=== PATIENT | female | born 1990 | race Hispanic/Latino ===

== ENCOUNTER 2017-09-16 09:56 | Inpatient (IN) | payer OTHER ==
[~2017-09-16 09:56] MED LIST: ACETAMINOPHEN 500 MG TAB PO PRN; BUTORPHANOL 1 MG/ML INJ IV PRN; DIPHENHYDRAMINE 50 MG/ML VIAL IV PRN; METOCLOPRAMIDE 10 MG/2mL INJ IV PRN; ONDANSETRON 4 MG/2 ML VIAL IV PRN; Ringers Lactate 1,000 ML IV PRN; Ringers Lactate 1,000 ML IV SCH; miSOPROStol 100 MCG TAB PO ONE
--- OUTSIDE RECORDS SUMMARY | 2017-09-16 09:57 | XMS REPORT ---
:1990 Author Organization [employer]Works Care Team Providers Name Role Phone Flori Bender Provider Role Unavailable Allergies No Known Allergies Problems Problem Type Condition Code Onset Dates Condition Status Problem Multigravida in second trimester Z34.82 Active Assessment Multigravida in second trimester Z34.82 Active Problem Anemia affecting in third O99.013 Active trimester Assessment Anemia affecting in third O99.013 Active trimester Medications Medication Code System Code Instructions Start End Date Status Dosage Date Ferralet 90 NDC 66862850042 90-1 MG Orally June 17, Active 1 tablet Twice a day 2018 Results No Known Results Summary Purpose [employer]ClinicalWorks Submission
--- OUTSIDE RECORDS SUMMARY | 2017-09-16 09:57 | XMS REPORT ---
:1990 Author Organization [employer] Care Team Providers Name Role Phone Flori Bender Provider Role Unavailable Allergies No Known Allergies Problems Problem Type Condition Code Onset Dates Condition Status Problem Anemia affecting in third O99.013 Active trimester Assessment Multigravida in third trimester Z34.83 Active Problem Multigravida in third trimester Z34.83 Active Medications Medication Code System Code Instructions Start End Date Status Dosage Date Ferralet 90 [facility] [id number] 90-1 MG Orally June 17, Active 1 tablet Twice a day 2017 Results No Known Results Summary Purpose eClinicalWorks Submission
--- OUTSIDE RECORDS SUMMARY | 2017-09-16 09:57 | XMS REPORT ---
[...] End Date Status Dosage Date Ferralet 90 [facility] [id number] 90-1 MG Orally June 17, Active 1 tablet Twice a day 2017 Results No Known Results Summary Purpose eClinicalWorks Submission
--- OUTSIDE RECORDS SUMMARY | 2017-09-16 09:57 | XMS REPORT ---
:1990 Author Organization [employer] Care Team Providers Name Role Phone Flori Bender Provider Role Unavailable Allergies No Known Allergies Problems Problem Type Condition Code Onset Dates Condition Status Problem Anemia affecting in third O99.013 Active trimester Assessment Anemia affecting in third O99.013 Active trimester Problem Multigravida in third trimester Z34.83 Active Assessment Multigravida in third trimester Z34.83 Active Medications Medication Code System Code Instructions Start End Date Status Dosage Date Ferralet 90 NDC 98677510255 90-1 MG Orally June 17, Active 1 tablet Twice a day 2018 Results No Known Results Summary Purpose eClinicalWorks Submission
--- OUTSIDE RECORDS SUMMARY | 2017-09-16 09:58 | XMS REPORT ---
:1990 Author Organization [employer] Care Team Providers Name Role Phone Flori Bender Provider Role Unavailable Allergies No Known Allergies Problems Problem Type Condition Code Onset Dates Condition Status Problem Anemia affecting in third O99.013 Active trimester Problem Multigravida in third trimester Z34.83 Active Medications No Known Medications Results No Known Results Summary Purpose [employer] Submission
--- OUTSIDE RECORDS SUMMARY | 2017-09-16 09:58 | XMS REPORT ---
[...] End Date Status Dosage Date Ferralet 90 [facility] [id number] 90-1 MG Orally June 17, Active 1 tablet Twice a day 2017 Results No Known Results Summary Purpose eClinicalWorks Submission
--- OUTSIDE RECORDS SUMMARY | 2017-09-16 09:58 | XMS REPORT ---
[...] End Date Status Dosage Date Ferralet 90 [facility] [id number] 90-1 MG Orally June 17, Active 1 tablet Twice a day 2017 Results No Known Results Summary Purpose eClinicalWorks Submission
--- OUTSIDE RECORDS SUMMARY | 2017-09-16 09:58 | XMS REPORT ---
:1990 Author Organization eClinicalWorks Care Team Providers Name Role Phone Flori Bender Provider Role Unavailable Allergies No Known Allergies Problems Problem Type Condition Code Onset Dates Condition Status Problem Anemia affecting in third O99.013 Active trimester Assessment Multigravida in third trimester Z34.83 Active Problem Multigravida in third trimester Z34.83 Active Assessment Anemia affecting in third O99.013 Active trimester Medications Medication Code System Code Instructions Start End Date Status Dosage Date Ferralet 90 NDC [id number] 90-1 MG Orally June 17, Active 1 tablet Twice a day 2018 Results No Known Results Summary Purpose eClinicalWorks Submission
--- OUTSIDE RECORDS SUMMARY | 2017-09-16 09:58 | XMS REPORT ---
[...] Date Status Dosage Date Ferralet 90 NDC [id number] 90-1 MG Orally June 17, Active 1 tablet Twice a day 2018 Results No Known Results Summary Purpose eClinicalWorks Submission
[2017-09-16 10:28] VITALS: BMI 30.1
[2017-09-16 10:59] LABS: RPR Titer ND
[2017-09-16 11:02] LABS: Absolute Lymphocytes (CBC) 1.6 K/uL (0.7-4.9); Absolute Monocytes 0.4 K/uL (0.1-1.3); Absolute Neutrophil 4.1 K/uL (1.8-8.0); Basophils % 0.4 % (0-1.3); Eosinophils % 0.7 % (0-4.4); Hematocrit 35.3 % (36.0-45.0); Lymphocytes % 25.1 % (15.3-44.8); MCH 33.6 pg (27.0-35.0); MCV 94.3 fL (80-100); MPV 9.6 fL (7.6-11.3); Monocytes % 6.8 % (3.3-12.3); RBC Red Blood Cell Count 3.74 M/uL (3.86-4.86)
[2017-09-16 11:11] LABS: Urine Appearance CLOUDY; Urine Bilirubin NEGATIVE (NEG); Urine Blood NEGATIVE (NEG); Urine Color YELLOW; Urine Glucose NEGATIVE (NEG); Urine Protein NEGATIVE (NEG); Urine pH 6.5 (5.0-7.0)
[2017-09-16 11:12] LABS: Urine Microscopic Reflex ORDER UMIC
[2017-09-16 11:17] LABS: Urine Bacteria 20-50 /HPF (<20); Urine Culture Reflex Order REFLEXED; Urine RBC <5 /HPF (NONE SEEN)
--- NOTE | 2017-09-16 12:09 | P.HP ---
Certification for Inpatient Patient admitted to: Inpatient With expected LOS: >2 Midnights Patient will require the following post-hospital care: None Practitioner: I am a practitioner with admitting privileges, knowledge of patient current condition, hospital course, and medical plan of care. Services: Services provided to patient in accordance with Admission requirements found in Title 42 Section 412.3 of the Code of Federal Regulations Patient History Date of Service: 09/16/17 Reason for admission: Elective induction of labor History of Present Illness: 27-year-old at 39 weeks and 1 day today being admitted for an elective induction of labor. She is had adequate care which was complicated by anemia - on iron supplementation. Anemia has resolved. She had a negative quad screen and normal anatomic survey. There were no other complications during . ARMINDA: . GBS negative status Allergies No Known Allergies Allergy (Unverified 07/21/16 23:52) Home medications list reviewed: Yes Home Medications: Ferrous Sulfate 1 tab PO DAILY 09/16/17 Vitamin [ VITAMIN*] 1 tab PO DAILY 09/16/17 - Past Medical/Surgical History Has patient received pneumonia vaccine in the past: No Past Medical History: Patient denies medical history -: Normal vaginal delivery - 11/2012 -: Miscarriage - 2017 (1st trimester loss) - Social History Smoking Status: Former smoker Alcohol use: No CD- Drugs: No Caffeine use: No Place of Residence: Home Review of Systems 10-point ROS is otherwise unremarkable Physical Examination - Vital Signs Temperature: 97.7 F Blood Pressure: 120/74 Pulse: 68 Respirations: 18 - Physical Exam General: Alert, In no apparent distress, Oriented x3 HEENT: Atraumatic, Normocephalic Respiratory: Other (Normal effort) Cardiovascular: No edema, Normal pulses Gastrointestinal: Soft and benign (Gravid) Musculoskeletal: No swelling, No tenderness Integumentary: No rashes, No breakdown Neurological: Normal speech, Normal strength at 5/5 x4 extr - Studies Laboratory Data (last 24 hrs) 09/16/17 10:35: WBC 6.2, Hgb 12.6, Hct 35.3 L, Plt Count 202 Female Exam - Female Pelvic Cervix: Dilation (1-2), Effacement (Thick), station (High), Other (Mid, firm) Uterus: Non-tender, Soft, Gravid - Obstetrics heart rate tracing: Category 1 Contractions: Frequency (Irregular) Amniotic membrane: Intact Assessment and Plan - Problems (Diagnosis) (1) Encounter for induction of labor Current Visit: Yes Status: Acute Plan: Admit to L&D for cervical ripening. IOL with cytotec PV started. Next dose is due in 6 hours. Keep on continuous monitoring x1 hour following dose, then patient may be up to ambulate. Pitocin when favorable vs AROM when well applied. GBS negative. MF status is overall reassuring. - Advance Directives Does patient have a Living Will: No Does patient have a Durable POA for Healthcare: No
[2017-09-16] MEDS ORDERED: miSOPROStol 100 MCG TAB VAG SCH (18:30)
--- NOTE | 2017-09-16 18:50 | P.PN ---
Date of Service: 09/16/17 Pt seen and examined. She reports increased pain. Discussed AROM and she agreed. She's considering and epidural for pain control. VSS FHR: cat I. [employer]: q 2 min SVE: 240/-2. AROM done: clear fluid noted A/p: 27 y.o. at 39w1d undergoing IOL - S/p AROM. Pitocin if labor stalls - Continuous monitoring - Epidural per patient request. Anesthesia notified
[2017-09-16] MEDS ORDERED: ROPIVACAINE HCL 0.2% 20ML AMP IV ONE (19:09)
[2017-09-16] MEDS ORDERED: ROPIVACAINE HCL 100 ML IV PRN (19:09)
[2017-09-16] MEDS ORDERED: OXYTOCIN/LR 20 UNIT/1,000 ML BAG IV SCH (22:00)
[2017-09-16] MEDS ORDERED: METHYLERGONOVINE 0.2MG/ML AMP IM ONE (23:05)
[2017-09-16] MEDS ORDERED: CARBOPROST TROME 250 MCG/ML IM ONE (23:05)
[2017-09-16] MEDS ORDERED: LIDOCAINE 1.5% W/EPI AMP 5 ML ONE (23:05)
[2017-09-16] MEDS ORDERED: ONDANSETRON 4 MG (ODT) TAB PO SCH (23:45)
--- NOTE | 2017-09-16 23:48 | P.OP ---
Preoperative diagnosis: Induction of labor Postoperative diagnosis: Same with tight nuchal cord Primary procedure: Anesthesia: Epidural Estimated blood loss: 400 cc Specimen: None Findings: See operative report Operative Technique: FINDINGS: Male fetus in OA position, APGARS of 3/8 at 1 and 5 minutes respectively, weight of 6 lb 15 oz, clear amniotic fluid. Tight nuchal cord x1. Normal appearing placenta. Second degree midline laceration. Stage I: 4h 24 min; Stage II: 14 min. HISTORY OF PRESENT ILLNESS: The patient is a 27-year-old female who is a at 39w1d who was admitted for an elective induction of labor. She had adequate care and was complicated by mild anemia. Labs were normal and she had otherwise routine care. On admission, she was noted to have an unfavorable cervix. She denied complaints and noted positive movement. PROCEDURE DETAILS: The patient was admitted to Labor and Delivery for induction , which was started with cytotec. She then had AROM and pitocin was started. Clear fluid was noted. Pain increased and she requested an epidural for pain control, which was placed with good result. Labor progressed normally. She had a spontaneous vaginal delivery of a live born male with clear fluid from an OA position over an intact perineum at 23:23. After controlled delivery of the head, a nuchal cord was noted. There was no further descnet with the next maternal pushes. An attempt was made to reduce the cord, but it was too tight and not reducible. To avoid cord rupture, it was doubly clamped and cut. Next, the shoulders and body followed without difficulty. Bulb suctioning was done. The infant was placed on the patient's abdomen for skin to skin contact while cleaned and was handed off to care attendants for assessment. He was dried off, stimulated, and given blow by before starting to cry. Spontaneous delivery of an intact placenta with a three-vessel cord was noted at 23:26. On examination, there was a 2nd degree midline laceration. It was repaired in the usual fashion using 2-0 vicryl. On vaginal exam, there were no noted cervical or vaginal sidewall lacerations. Patient tolerated procedure well and there were no complications. Estimated blood loss was ~400 cc. Mother and are in recovery doing well at this time. Complications: None Fluids & blood products: OKVF Transferred to: Recovery Room Condition: Good
[2017-09-16] MEDS ORDERED: CODEINE 30MG/APAP 300MG TAB PO PRN (23:49)
[2017-09-16] MEDS ORDERED: IBUPROFEN 200 MG TAB PO PRN (23:49)
[2017-09-16] MEDS ORDERED: METOCLOPRAMIDE 5 MG TAB PO PRN (23:49)
[2017-09-16] MEDS ORDERED: ZOLPIDEM TARTRATE 5 MG TABLET PO PRN (23:49)
[2017-09-16] MEDS ORDERED: DIPHENHYDRAMINE 25 MG TAB/CAP PO PRN (23:49)
[2017-09-16] MEDS ORDERED: NA CHLORIDE 0.9% 500 ML IV ONE (23:53)
[2017-09-17 02:00] LABS: RPR (Rapid Plasma Reagin) NON-REACT (NON-REACT)
--- NOTE | 2017-09-17 12:28 | P.DS ---
Admission Date: 09/16/17 Discharge Date: 09/24/17 Disposition: ROUTINE DISCHARGE Comment: Rounding with discharge summary Discharge Condition: GOOD Reason for Admission: Elective induction of labor Brief History of Present Illness: 27-year-old at 39 weeks and 1 day today being admitted for an elective induction of labor. She is had adequate care which was complicated by anemia - on iron supplementation. Anemia has resolved. She had a negative quad screen and normal anatomic survey. There were no other complications during . ARMINDA: . GBS negative status Hospital Course: Patient was admitted to Labor and delivery for an elective induction. Cervical ripening was done with Cytotec and induction continued Pitocin and AROM. She received epidural for pain control. She had a normal spontaneous vaginal delivery of a healthy baby boy. Her course was uncomplicated. She was infant. Patient stable for discharge home on day # 1. Vital Signs/Physical Exam: Temp Pulse Resp BP Pulse Ox 97.0 F 68 18 114/73 09/17/17 11:48 09/17/17 11:48 09/17/17 11:48 09/17/17 11:48 General: Alert, In no apparent distress, Oriented x3 Respiratory: Other (Normal effort) Cardiovascular: Normal pulses Gastrointestinal: Soft and benign, No tenderness, Other (Uterus firm and at level of umbilicus) Musculoskeletal: No swelling, No erythema, No tenderness Integumentary: No rashes, No breakdown Neurological: Normal speech, Normal strength at 5/5 x4 extr Laboratory Data at Discharge: WBC 6.2 K/uL (4.3-10.9) 09/16/17 10:35 Hgb 12.6 g/dL (12.0-15.0) 09/16/17 10:35 Hct 35.3 % (36.0-45.0) L 09/16/17 10:35 Plt Count 202 K/uL (152-406) 09/16/17 10:35 Home Medications: Ferrous Sulfate 1 tab PO DAILY 09/16/17 Vitamin [ VITAMIN*] 1 tab PO DAILY 09/16/17 Codeine/APAP [Tylenol #3*] 1 tab PO Q4H PRN #15 tab 09/17/17 Ibuprofen [Motrin*] 600 mg PO Q8HP PRN #30 tab 06/20/18 New Medications: Codeine/APAP [Tylenol #3*] 1 tab PO Q4H PRN #15 tab PRN Reason: Pain Scale 8-10 (Severe) Ibuprofen [Motrin*] 600 mg PO Q8HP PRN #30 tab PRN Reason: [id number] Patient Discharge Instructions: Complete pelvic rest for 6 week after delivery. Notify doctor of heavy bleeding, pain, fever/chills, or other signs of infection. Schedule 6 weeks exam. Diet: Regular Activity: Ad betina Followup: Flori Bender MD [Family Provider] -
[2017-09-18 07:18] VITALS: BP 102/62; TEMP 96.5
[2017-09-19 03:31] LABS: HBsAG Nonreactive (Nonreactive)
== END 2017-09-18 09:00 | disposition home or self-care (01) | DRG 775 ==
LOC: 2ND-WC 09:56
PROVIDERS: ADMIT Obstetrics & Gynecology; ATTEND Obstetrics & Gynecology
PROC: 10E0XZZ Delivery of Products of Conception, External Approach (ICD-10-PCS; principal; 2017-09-16)
PROC: 0KQM0ZZ Repair Perineum Muscle, Open Approach (ICD-10-PCS; 2017-09-16)
PROC: 10907ZC Drainage of Amniotic Fluid, Therapeutic from Products of Conception, Via Natural or Artificial Opening (ICD-10-PCS; 2017-09-16)
PROC: 3E033VJ Introduction of Other Hormone into Peripheral Vein, Percutaneous Approach (ICD-10-PCS; 2017-09-16)
PROC: 3E0P7VZ Introduction of Hormone into Female Reproductive, Via Natural or Artificial Opening (ICD-10-PCS; 2017-09-16)
DX: O69.1XX0 Labor and delivery complicated by cord around neck, with compression, not applicable or unspecified (principal); O70.1 Second degree perineal laceration during delivery; Z3A.39 39 weeks gestation of pregnancy; Z37.0 Single live birth; Z87.891 Personal history of nicotine dependence
CPT/HCPCS: 36415; 81003; 81015; 85025; 86592; 86850; 86900; 86901; 87086; 87088; 87340; J0595; J2001; J2210; J2590; J2795